=== PATIENT | male | born 1990 | race Caucasian/White ===

== ENCOUNTER 2017-12-29 17:26 | Emergency (ER) | payer BC, OTHER ==
[2017-12-29 17:30] VITALS: BP 117/56; BMI 24.4
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
[2017-12-29] MEDS ORDERED: ZANAFLEX PO ONE (18:35)
[2017-12-29] MEDS ORDERED: ULTRAM PO ONE (18:35)
[2017-12-29] MEDS ORDERED: ZANAFLEX ONE (18:38)
[2017-12-29] MEDS ORDERED: ULTRAM ONE (18:38)
== END 2017-12-29 18:57 | disposition home or self-care (01) ==
LOC: ER 17:35
DX: S39.012A Strain of muscle, fascia and tendon of lower back, initial encounter (principal); S16.1XXA Strain of muscle, fascia and tendon at neck level, initial encounter; V89.2XXA Person injured in unspecified motor-vehicle accident, traffic, initial encounter
CPT/HCPCS: 72125; 72128; 72131; 99282